=== PATIENT | male | born 1980 | race Caucasian/White ===

== ENCOUNTER 2020-06-02 12:02 | Emergency (ER) | payer BC, SELFPAY ==
[2020-06-02] VITALS (12 sets, daily range): BP systolic 112–136; BP diastolic 67–96; PULSE 69–90; RESP 9–29; TEMP 36.7; O2SAT 97–100
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
--- NOTE | 2020-06-02 12:22 | ECG_ITS ---
Measurements Intervals [place] Rate: 84 P: 75 MO: 124 QRS: 73 QRSD: 91 T: 45 QT: 344 QTc: 407 Interpretive Statements SINUS RHYTHM POSSIBLE LEFT ATRIAL ENLARGEMENT BORDERLINE ECG Electronically Signed On 06-02-2020 14:30:04 CDT by Rufino Bran D.O.
[2020-06-02] MEDS: SODIUM CHLORIDE 0.9% IV 1,000 ML 999 ML IV CONT (12:33)
[2020-06-02 12:39] LABS: Basophils Absolute Auto 0.1 K/mm3 (0.0-0.1); Basophils Percent Auto 0.8 % (0.2-1.2); Eosinophils Absolute Auto 0.1 K/mm3 (0-0.3); Eosinophils Percent Auto 0.8 % (0-4.4); Hematocrit 46.6 % (42.0-52.0); Hemoglobin 16.1 g/dL (14.0-18.0); Immature Granulocyte Absolute 0.04 K/mm3 (0.00-0.031); Immature Granulocyte Percent A 0.4 % (0-0.5); Lymphocytes Absolute Auto 2.27 K/mm3 (0.9-3.2); Lymphocytes Percent Auto 25.3 % (18.3-44.2); Mean Corpuscular HGB Conc 34.5 g/dl (32-36); Mean Corpuscular Hemoglobin 31.1 pg (26-34); Mean Corpuscular Volume 90.1 fl (80-100); Mean Platelet Volume 9.7 fl (7.4-10.4); Monocytes Absolute Auto 0.5 K/mm3 (0.1-0.6); Monocytes Percent Auto 5.6 % (2.6-8.5); Neutrophils Percent Auto 67.1 % (45.5-73.1); Platelet Count Result 270 k/mm3 (150-375); Red Blood Count 5.17 M/mm3 (4.6-6.20); Red Cell Distribution Width 12.3 % (11.5-14.5)
[2020-06-02 12:55] LABS: Alanine Aminotransferase 20 U/L (4-50); Albumin Level 4.9 g/dL (3.5-5.1); Alkaline Phosphatase 88 U/L (38-126); Anion Gap 10 mmol/L (8-16); Aspartate Amino Transferase 22 U/L (17-59); Bilirubin,Total 0.5 mg/dL (0.2-1.3); Blood Urea Nitrogen 10 mg/dL (9-20); Calcium 9.7 mg/dL (8.4-10.2); Carbon Dioxide 26 mmol/L (22-30); Chloride 103 mmol/L (98-107); Estimated CRCL calculation 90 ml/min; Estimated Glomerular Filt Rate > 60; Glucose 97 mg/dL (75-110); Potassium 3.6 mmol/L (3.4-5.0); Sodium 139 mmol/L (137-145)
[2020-06-02 12:56] LABS: Ethanol < 10 mg/dL (<10)
--- NOTE | 2020-06-02 13:05 | PC.NURSE ---
Addendum entered by Tavares Romero RN 06/02/20 16:21: Pt also gives a history of stopping his medications at the recommendation of a friend of his. States that he did not stop the medications quickly, but rather weaned himself off. Reports has also been increasing his marijuana use recently, including smoking and wax with a bong. Original Note: Initial contact with patient. Is currently alert and oriented x3. IVF continue to infuse without difficulty.
--- NOTE | 2020-06-02 13:57 | PC.NURSE ---
Pt unable to void at the bedside or in the bathroom. Pt requests water and verbal order received from Dr. Dan.
[2020-06-02 14:28] LABS: Add Urine Microscopic? YES; Appearance Urine Clear (Clear); Bilirubin Urine 1+ (Negative); Blood Urine Negative (Negative); Calcium Oxalate Crystals Urine Present /hpf; Color Urine Yellow (Yellow); Glucose Urine UA Negative (Negative); Ketones Urine Trace mg/dL (Negative); Leukocyte Esterase Ur 2+ LEU/UL (Negative); Mucus Urine Moderate /lpf; Nitrate Urine Negative (Negative); Protein Urine 1+ mg/dL (Negative); RBC Urine 0-2 /hpf (0-2); Specific Grav Ur 1.031 (1.001-1.035); Squamous Epithelial Cell Urine Occasional /hpf (Few); WBC Urine 0-3 /hpf
[2020-06-02 14:45] LABS: Amphetamine Screen Urine Negative (Negative); Barbiturate Screen Urine Negative (Negative); Benzodiazepines Screen Urine Negative (Negative); Cannabinoid Screen Urine Positive (Negative); Cocaine Screen Urine Negative (Negative); Methadone Screen Urine Negative (Negative); Opiate Screen Urine Negative (Negative); Phencyclidine Screen Urine Negative (Negative)
--- NOTE | 2020-06-02 16:26 | PC.NURSE ---
Crisis Intervention contacted and state will be out enroute. Pt updated.
--- NOTE | 2020-06-02 18:35 | PC.NURSE ---
Crisis at bedside for evaluation.
--- NOTE | 2020-06-02 19:23 | PC.NURSE ---
Report to CASSIA Lacey, to continue care.
--- NOTE | 2020-06-02 22:25 | PC.NURSE ---
Spoke with Socrates at [facility]. Patient accepted by Dr Jeancarlos Triplett into room [id number]. Transportation called
--- NOTE | 2020-06-02 22:50 | PC.NURSE ---
called [facility] for transport. No ETA given. They will call back a 7am.
--- NOTE | 2020-06-02 23:00 | PC.NURSE ---
Patient cooperative with changing into green scrubs but asking why do I have to change now when I've been in my regular clothes since I've been here? Explained hospital policy-security in [place] while obtaining sitter after talking with primer charger about patient wanting to go outside to smoke and talking about stepping just outside those doors -(pointing to ambulance bay doors)
[2020-06-02] MEDS: NICOTINE (*PBKC) 14 MG PATCH 1 PATCH TRANSDERM (23:30)
--- NOTE | 2020-06-03 06:49 | PC.NURSE ---
[facility] to transport patient. ETA 1000
[2020-06-03 07:45] VITALS: BP 119/80; PULSE 71; RESP 12; TEMP 36.7; O2SAT 100
[2020-06-03 10:15] VITALS: PULSE 70; RESP 12
== END 2020-06-03 10:15 ==
PROVIDERS: Emergency Provider Emergency Medicine; PCP Internal Medicine
DX: F22 Delusional disorders (principal); F23 Brief psychotic disorder; F41.9 Anxiety disorder, unspecified; F32.9 Major depressive disorder, single episode, unspecified; F17.200 Nicotine dependence, unspecified, uncomplicated
CPT/HCPCS: 36415; 80053; 80307; 81001; 84443; 85025; 93005; 96360; 99285; A9270; J7030

== ENCOUNTER 2023-11-15 15:59 | Outpatient (RCR) | payer OTHER, SELFPAY ==
--- NOTE | 2023-11-15 17:40 | OPREHPOC ---
Outpatient Therapy Plan of Care This is a Multidisciplinary Plan of Care that may contain components documented by all disciplines (PT, OT, and ST.) PT Problem 1 PT Problem #1 Knowledge Deficit PT Goal 1 Goal The patient will be independent in a home exercise program. Target Visit 12 PT Problem 2 PT Problem #2 Pain PT Goal 1 Goal The patient will report no greater than 4/10 low back pain with daily activities. Target Visit 12 PT Problem 3 PT Problem #3 Impaired Range of Motion PT Goal 1 Goal The patient will improve bilateral lumbar lateral flexion to 20 degrees to improve ability to dress the LE. Target Visit 12 PT Problem 4 PT Problem #4 Impaired Functional Mobil PT Goal 1 Goal The patient will improve self perceived disability to less than 20% per the modified Oswestry back disability questionnaire. Target Visit 12 PT Problem 5 PT Problem #5 Impaired Strength PT Goal 1 Goal The patient will demonstrate at least 4/5 abdominal strength to support the lumbar spine. Target Visit 12
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
--- NOTE | 2023-11-21 14:00 | PCPTNOTE ---
patient states he will not be able to make it when called
--- NOTE | 2023-11-23 08:15 | PCPTNOTE ---
patient called, no answer
--- NOTE | 2023-11-27 17:06 | PCPTNOTE ---
patient called, no answer
--- NOTE | 2023-11-29 13:04 | PCPTNOTE ---
Patient cancelled session today. Patient states he can't make it in and will call later to reschedule.
--- NOTE | 2024-01-03 11:08 | PCPTNOTE ---
01/03/24: Pt only attended 2 PT sessions and was last seen on 11/19/23. He is discharged. -Lulu Ratliff, PT
== END 2023-11-19 20:00 | disposition home or self-care (01) ==
LOC: CHSPT 15:59
PROVIDERS: PCP Family Medicine; Visit Provider Family Medicine
DX: M54.50 Low back pain, unspecified (principal); M21.70 Unequal limb length (acquired), unspecified site
CPT/HCPCS: 97014; 97110; 97161; G0283

== ENCOUNTER 2024-01-17 13:34 | Outpatient (CLI) | payer OTHER, SELFPAY ==
--- NOTE | ~2024-01-17 | XR_ITS ---
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 COMPARISON: None available. FINDINGS: 5 nonrib-bearing lumbar-type vertebral bodies. Pedicles intact. 2 mm retrolistheses at L2- 3 and L3-4. 4 mm retrolisthesis at L4-5. 5 mm retrolisthesis at L5-S1. Vertebral body heights preserv ed. Mild disc space narrowing and marginal osteophytosis at all lumbar levels. Mild lower lumbar face t sclerosis and hypertrophy. No fracture or dislocation. IMPRESSION: Multilevel grade 1 retrolistheses. Multilevel mild degenerative disc disease. Mild lower lumbar facet arthropathy. Reviewed, dictated and finalized at location K. IMPRESSION: Multilevel grade 1 retrolistheses. Multilevel mild degenerative dis c disease. Mild lower lumbar facet arthropathy.
== END 2024-01-17 13:35 | disposition home or self-care (01) ==
LOC: CHSIMG 13:36
PROVIDERS: PCP Family Medicine; Visit Provider Family Medicine
DX: M54.50 Low back pain, unspecified (principal); M51.36 Other intervertebral disc degeneration, lumbar region; M12.88 Other specific arthropathies, not elsewhere classified, other specified site; M43.16 Spondylolisthesis, lumbar region
CPT/HCPCS: 72100

== ENCOUNTER 2024-04-07 14:43 | Outpatient (RCR) | payer OTHER, SELFPAY ==
--- NOTE | 2024-04-07 16:31 | PTOPEVAL1 ---
Assessment and note entered by Jah Pritchard Evaluation Information Assessment Status Evaluation ICD-10 Condition Codes (PT) Pain in low back M54.50 Onset 04/07/24 Subjective Information Pt. reports that he originally injured the low back at work about 1 year ago throwing metal. He states that he has been attending care consultant with some relief noted. He reports that he was told he has a leg length discrepancy and recently put a lift in the left shoe. He reports that while his low back pain is better it is still present with prolonged standing activities. He describes pain in the middle of the lower back. He states that he has hx of bulging disc in the low back. 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 He reports that he has not worked in over 1 year due to his back pain. He reports that he is unable to do regular household duties such as weed eating and mopping due to back pain. He reports that pain does not affect his sleep. He states that he does take a nerve pill if he gets symptoms into the legs, and has been using Vicodin for about 4 weeks for pain. He reports that his goal is to reduce his low back pain. Reported Pain Level Pain Score 7: Self Report Assessment PT Clinical Summary pt. is a 43 year old male, smoker, with chronic low back pain. He presents with proximal l.e. weakness, abdominal weakness, impaired gait, impaired postural awareness, functional decline and pain. Continued skilled PT is indicated in order to improve these areas to allow for improved comfort and improved IADL performance. Plan of Care Interventions Electrical Stimulation,Hot Pack/Cold Pack,Manual Therapy,Neuro Re-education,Patient/Caregiver Educati,Therapeutic Activities,Therapeutic Exercise PT Services Indicated Yes Treatment Frequency and 2x/week x 10 visits Duration These treatments will address the objective and functional deficits as defined above. The patient will be advanced safely and appropriately in order for the patient to progress towards his/her prior level of function. Additional exercises will be introduced and as well as a comprehensive home exercise program upon discharge, if needed, ?to ensure carryover of functional gains achieved in the clinic. This treatment plan has been reviewed and agreement upon by the patient.
--- NOTE | 2024-04-07 16:32 | OPREHPOC ---
Outpatient Therapy Plan of Care This is a Multidisciplinary Plan of Care that may contain components documented by all disciplines (PT, OT, and ST.) PT Problem 1 PT Problem #1 Knowledge Deficit PT Goal 1 Goal Pt. will be independent with a HEP addressing core strength and trunk mobility. Target Visit 2 PT Problem 2 PT Problem #2 Impaired Flexibility PT Goal 1 Goal Pt. will present at 15 degrees from full knee extension on right and left with the 90/90 test to improve postural awareness Target Visit 5 PT Problem 3 PT Problem #3 Impaired Functional Mobil PT Goal 1 Goal Pt. will present with less than 15% limitation on the Modified Oswestry indicating improvement in overall function. Pt. will demonstrate ability to lift 20# object from floor to waist without pain for 10 reps to complete household duties Target Visit 10 PT Problem 4 PT Problem #4 Impaired Strength PT Goal 1 Goal Pt. will present with good upper, lower and oblique abdominal strength to improve lumbar stability. Target Visit 10
== END 2024-07-06 23:59 | disposition home or self-care (01) ==
LOC: CHSPT 14:43
PROVIDERS: PCP Family Medicine; Visit Provider Family Medicine
DX: M54.50 Low back pain, unspecified (principal)
CPT/HCPCS: 97012; 97014; 97110; 97161; G0283